=== PATIENT | male | born 1970 | race Caucasian/White ===

== ENCOUNTER 2020-01-29 20:05 | Emergency (ER) | payer MEDICARE, MEDICAID ==
[2020-01-29] MEDS ORDERED: Midazolam 1 MG/ML 2 ML SDV IVPUSH ONE (20:31)
[2020-01-29] MEDS ORDERED: diphenhydrAMINE 50 MG/ML SDV IVPUSH ONE (20:31)
[2020-01-29] MEDS ORDERED: diphenhydrAMINE 50 MG/ML SDV ONE (20:31)
[2020-01-29] MEDS ORDERED: LORazepam 2 MG/ML SDV IVPUSH ONE (20:32)
[2020-01-29] MEDS ORDERED: Haloperidol Lactate 5 MG/ML SDV ONE (20:32)
[2020-01-29] MEDS ORDERED: Haloperidol Lactate 5 MG/ML SDV IVPUSH ONE (20:32)
[2020-01-29] MEDS ORDERED: LORazepam 2 MG/ML SDV ONE (20:32)
[2020-01-29] MEDS ORDERED: Haloperidol Lactate 5 MG/ML SDV IM ONE (20:40)
--- NOTE | 2020-01-29 20:45 | EDM.PDOC ---
ED HPI GENERAL MEDICAL PROBLEM - General Source of Information: Reports: Patient, EMS, EMS Notes Reviewed, Family, Police , RN, RN Notes Reviewed, Other ([facility]) History Limitations: Reports: Altered Mental Status, Combative/Threatening, Uncooperative - History of Present Illness Onset: Today, Sudden <Shannan Carmen - Last Filed: 01/30/20 07:11> <Fouzia Pearson - Last Filed: 01/30/20 09:04> - General Chief Complaint: Behavioral/Psych Stated Complaint: AMBULANCE Time Seen by Provider: 01/29/20 20:10 - History of Present Illness INITIAL COMMENTS - FREE TEXT/NARRATIVE: Pt presents to ER per [facility]. Pt resides at [facility]. EMS states the patient was having seizure like activity when they arrived, patient was laying prone and hitting his forehead on the ground. When seizure like activity stopped, patient became very combative, spitting, biting, kicking, hitting. Patient was escorted to the ER with 2 ambulance personnel and 2 [employer] police officers. Patient had Ativan 2mg IM enroute without any improvement. Patient is alert and screaming at EMS, Police, and ER staff. Patient has a hx of Down's Syndrome (high functioning), dementia, and Alzheimer's. Retirement staff state the patient has no history of seizure. Sister states he has had seizures in the past. Records show the patient has been on Lamotrigine in the past (?09/2019), but is not on this currently. (Shannan Carmen) - Related Data Allergies Allergy/AdvReac Type Severity Reaction Status Date / Time No Known Allergies Allergy Verified 01/29/20 20:31 Home Meds: Home Meds Aspirin [Mohinder Chewable Aspirin] 81 mg PO DAILY 01/29/20 [History] Escitalopram Oxalate [Lexapro] 20 mg PO DAILY 01/29/20 [History] Levothyroxine 112 mcg PO DAILY 01/29/20 [History] Loratadine [Claritin] 10 mg PO DAILY 01/29/20 [History] Memantine HCl/Donepezil HCl [Namzaric 28 mg-10 mg Capsule] 1 tab PO BEDTIME 01/29/20 [History] Montelukast [Singulair] 10 mg PO DAILY 01/29/20 [History] Multivitamin with Minerals [Multiple Vitamin] 1 tab PO DAILY 01/29/20 [History] Mupirocin Calcium [Bactroban] 1 applic TOP DAILY 01/29/20 [History] Pantoprazole Sodium [Protonix] 40 mg PO DAILY 01/29/20 [History] atorvaSTATin [Lipitor] 20 mg PO DAILY 01/29/20 [History] busPIRone [Buspar] 10 mg PO BID 01/29/20 [History] ED ROS GENERAL - Review of Systems Review Of Systems: Comprehensive ROS is negative, except as noted in HPI. <Shannan Carmen - Last Filed: 01/30/20 07:11> - Physical Exam Exam: See Below Exam Limited By: Combative/Threatening General Appearance: Alert, WD/WN, Anxious, Moderate Distress Eye Exam: Bilateral Eye: EOMI, Normal Inspection Ears: Normal External Exam, Hearing Grossly Normal Nose: Normal Inspection Throat/Mouth: Other (mouth, mucous membranes, and lips very dry and cracked) Head Exam: Facial Ecchymosis (petechiae to the forehead), Facial Swelling (center of the forehead, contusion/hematoma) Neck: Normal Inspection, Supple, Full Range of Motion, Tender Lateral Respiratory/Chest: No Respiratory Distress, Lungs Clear, Normal Breath Sounds, No Accessory Muscle Use, Chest Non-Tender Cardiovascular: Normal Peripheral Pulses, Regular Rate, Rhythm, No Edema, No Gallop, No JVD, No Murmur, No Rub GI/Abdominal: Normal Bowel Sounds, Soft, Non-Tender, No Organomegaly, No Distention, No Abnormal Bruit, No Mass, Pelvis Stable (Male) Exam: Deferred Rectal (Males) Exam: Deferred Neuro Exam (Abbreviated): Alert, Other (very combative, kicking, biting, spitting) Back Exam: Normal Inspection, Full Range of Motion Extremities: Normal Inspection, Normal Range of Motion, Non-Tender, No Pedal Edema, Normal Capillary Refill Psychiatric: Anxious, Other (threatening) Skin Exam: Warm, Dry, Intact, Normal Color, No Rash <Shannan Carmen - Last Filed: 01/30/20 07:11> Course <Shannan Carmen - Last Filed: 01/30/20 07:11> - Vital Signs Last Recorded V/S: Last Vital Signs Temp 99.6 F 01/29/20 20:51 Pulse 87 01/29/20 20:51 Resp 16 01/29/20 20:51 BP 134/60 01/29/20 20:51 Pulse Ox 91 L 01/29/20 20:51 - Orders/Labs/Meds Orders: Active Orders 24 hr Category Date Time Status Blood Glucose Check, Bedside [RC] ONETIME Care 01/29/20 20:24 Active EKG Documentation Completion [RC] STAT Care 01/29/20 20:24 Active HBSAG SCREEN [REF] Routine Lab 01/29/20 21:00 Received HEP C VIRUS AB [REF] Routine Lab 01/29/20 21:00 Received Labs: Laboratory Tests 01/29/20 01/29/20 01/29/20 Range/Units 20:52 21:00 21:00 WBC 5.4 (5.0-10.0) 10^3/uL RBC 3.72 L (4.6-6.2) 10^6/uL Hgb 12.6 L (14.0-18.0) g/dL Hct 36.8 L (40.0-54.0) % MCV 98.9 (80-100) fL MCH 33.9 (27.0-34.0) pg MCHC 34.2 (33.0-35.0) g/dL Plt Count 123 L (150-450) 10^3/uL Neut % (Auto) 90.9 H (42.2-75.2) % Lymph % (Auto) 5.2 L (20.5-50.1) % [place] % (Auto) 3.3 (2-8) % Eos % (Auto) 0.4 L (1.0-3.0) % Baso % (Auto) 0.2 (0.0-1.0) % Sodium 142 (136-145) mmol/L Potassium 3.5 (3.5-5.1) mmol/L Chloride 103 (98-107) mmol/L Carbon Dioxide 25 (21-32) mmol/L Anion Gap 17.5 H (7-13) mEq/L BUN 24 H (7-18) mg/dL Creatinine 1.31 H (0.70-1.30) mg/dL Est Cr Clr Drug Dosing 62.23 mL/min Estimated GFR (MDRD) 58 BUN/Creatinine Ratio 18.3 (No establ ref range) Glucose 101 H (74-99) mg/dL POC Glucose 97 (70-105) mg/dl Calcium 8.2 L (8.5-10.1) mg/dL Total Bilirubin 0.6 (0.2-1.0) mg/dL AST 28 (15-37) U/L ALT 23 (16-63) U/L Alkaline Phosphatase 67 (46-116) U/L Total Protein 6.9 (6.4-8.2) g/dL Albumin 3.1 L (3.4-5.0) g/dL Globulin 3.8 Albumin/Globulin Ratio 0.82 Urine Color (YELLOW) Urine Appearance (CLEAR) Urine pH (5.0-9.0) Ur Specific [place] (1.005-1.030) Urine Protein (NEGATIVE) Urine Glucose (UA) (NEGATIVE) Urine Ketones (NEGATIVE) Urine Occult Blood (NEGATIVE) Urine Nitrite (NEGATIVE) Urine Bilirubin (NEGATIVE) Urine Urobilinogen (0.2-1.0) mg/dL Ur Leukocyte Esterase (NEGATIVE) Urine RBC /HPF Urine WBC (0-5/HPF) /HPF Ur Epithelial Cells (NOT SEEN) /HPF Urine Bacteria (0-FEW/HPF) /HPF HIV-1 Antibody (NONREACTIVE) HIV-2 Antibody (NONREACTIVE) HIV P24 Antigen (NONREACTIVE) SARS CoV-2 RNA Rapid VASILIY (NEGATIVE) 01/29/20 01/29/20 01/30/20 Range/Units 21:00 21:00 01:55 WBC (5.0-10.0) 10^3/uL RBC (4.6-6.2) 10^6/uL Hgb (14.0-18.0) g/dL Hct (40.0-54.0) % MCV (80-100) fL MCH (27.0-34.0) pg MCHC (33.0-35.0) g/dL Plt Count (150-450) 10^3/uL Neut % (Auto) (42.2-75.2) % Lymph % (Auto) (20.5-50.1) % [place] % (Auto) (2-8) % Eos % (Auto) (1.0-3.0) % Baso % (Auto) (0.0-1.0) % Sodium (136-145) mmol/L Potassium (3.5-5.1) mmol/L Chloride (98-107) mmol/L Carbon Dioxide (21-32) mmol/L Anion Gap (7-13) mEq/L BUN (7-18) mg/dL Creatinine (0.70-1.30) mg/dL Est Cr Clr Drug Dosing mL/min Estimated GFR (MDRD) BUN/Creatinine Ratio (No establ ref range) Glucose (74-99) mg/dL POC Glucose (70-105) mg/dl Calcium (8.5-10.1) mg/dL Total Bilirubin (0.2-1.0) mg/dL AST (15-37) U/L ALT (16-63) U/L Alkaline Phosphatase (46-116) U/L Total Protein (6.4-8.2) g/dL Albumin (3.4-5.0) g/dL Globulin Albumin/Globulin Ratio Urine Color Yellow (YELLOW) Urine Appearance Clear (CLEAR) Urine pH 7.5 (5.0-9.0) Ur Specific [place] 1.020 (1.005-1.030) Urine Protein Negative (NEGATIVE) Urine Glucose (UA) Negative (NEGATIVE) Urine Ketones Negative (NEGATIVE) Urine Occult Blood Negative (NEGATIVE) Urine Nitrite Negative (NEGATIVE) Urine Bilirubin Negative (NEGATIVE) Urine Urobilinogen 0.2 (0.2-1.0) mg/dL Ur Leukocyte Esterase Negative (NEGATIVE) Urine RBC Not seen /HPF Urine WBC 0-5 (0-5/HPF) /HPF Ur Epithelial Cells Occasional (NOT SEEN) /HPF Urine Bacteria Few (0-FEW/HPF) /HPF HIV-1 Antibody Non-reactive (NONREACTIVE) HIV-2 Antibody Non-reactive (NONREACTIVE) HIV P24 Antigen Non-reactive (NONREACTIVE) SARS CoV-2 RNA Rapid VASILIY Negative (NEGATIVE) Meds: Medications Discontinued Medications Generic Name Dose Route Start Last Admin Trade Name Freq PRN Reason Stop Dose Admin Diphenhydramine HCl 50 mg 01/29/20 20:31 01/29/20 20:36 Benadryl IVPUSH 01/29/20 20:32 50 mg ONETIME ONE Administration Diphenhydramine HCl Confirm 01/29/20 20:31 Benadryl Administered 01/29/20 20:32 Dose 50 mg .ROUTE .STK-MED ONE Haloperidol Lactate 5 mg 01/29/20 20:32 Haldol IVPUSH 01/29/20 20:33 ONETIME ONE Haloperidol Lactate Confirm 01/29/20 20:32 Haldol Administered 01/29/20 20:33 Dose 5 mg .ROUTE .STK-MED ONE Haloperidol Lactate 5 mg 01/29/20 20:40 01/29/20 20:42 Haldol IM 01/29/20 20:41 5 mg ONETIME ONE Administration Sodium Chloride 1,000 mls @ 999 mls/hr 01/29/20 21:04 01/29/20 21:11 Normal Saline IV 01/29/20 22:04 999 mls/hr .BOLUS ONE Administration Levetiracetam 1,500 mg/ Premix 300 mls @ 1,200 mls/hr 01/29/20 22:05 01/29/20 22:32 IV 01/29/20 22:06 1,200 mls/hr ONETIME ONE Administration Lorazepam 2 mg 01/29/20 20:32 Ativan IVPUSH 01/29/20 20:33 ONETIME ONE Lorazepam Confirm 01/29/20 20:32 Ativan Administered 01/29/20 20:33 Dose 2 mg .ROUTE .STK-MED ONE Midazolam HCl 2 mg 01/29/20 20:31 01/29/20 20:11 Versed 1 Mg/Ml IVPUSH 01/29/20 20:32 2 mg ONETIME ONE Administration - Radiology Interpretation Free Text/Narrative:: Head CT wo contrast: PROCEDURE INFORMATION: Exam: CT Head Without Contrast Exam date and time: 01/29/2020 9:40 PM Age: 49 years old Clinical indication: Other: Mentally disabled, unable to cooperate; Additional info: Petechia on forehead, seizure like activity, TECHNIQUE: Imaging protocol: Computed tomography of the head without contrast. Radiation optimization: All CT scans at this facility use at least one of these dose optimization techniques: automated exposure control; mA and/or kV adjustment per patient size (includes targeted exams where dose is matched to clinical indication); or iterative reconstruction. COMPARISON: No relevant prior studies available. FINDINGS: Brain: Normal. No hemorrhage. Unremarkable white matter. No mass effect. Cerebral ventricles: No ventriculomegaly. Bones/joints: Unremarkable. No acute fracture. Paranasal sinuses: Visualized sinuses are unremarkable. No fluid levels. Mastoid air cells: Visualized mastoid air cells are well aerated. Soft tissues: Unremarkable. IMPRESSION: No acute intracranial abnormality. Thank you for allowing us to participate in the care of your patient. Dictated and Authenticated by: Klaus Harris MD 01/29/2020 10:00 PM Central Time ([place] & [place]) See rad report (Shannan Carmen) - Re-Assessments/Exams Free Text/Narrative Re-Assessment/Exam: 01/29/2020 Patient case discussed with Laila George NP at the [facility] in [place]. She is concerned with further seizures. She requests the patient be observed for 8 hours and reassessed for transfer. Marissa from the [facility] [place] was here to assess the patient and assist with transfer paperwork. 01/29/20 21:44 Brother/Guardian was called for consent to draw HIV/HepC for exposure protocol. He agreed allow lab to be drawn for this reason as heard on phone conversation with himself and Cora Siegel RN, Making Department Preparer. (Shannan Carmen) Departure <Shannan Carmen - Last Filed: 01/30/20 07:11> - Departure Time of Disposition: 09:02 Condition: Good - Discharge Information *PRESCRIPTION DRUG MONITORING PROGRAM REVIEWED*: Not Applicable *COPY OF PRESCRIPTION DRUG MONITORING REPORT IN PATIENT TAMMY: Not Applicable <Fouzia Pearson Alyssa - Last Filed: 01/30/20 09:04> - Departure Disposition: DC/Tfer to Acute Hospital 02 Clinical Impression: Threatening to self, Suicidal ideation, Seizure-like activity - Discharge Information Referrals: PCP,None [Primary Care Provider] - Forms: ED Department Discharge, Interfacility Transfer TOSHA
[2020-01-29] MEDS ORDERED: Sodium Chloride 0.9% 1,000 ML IV ONE (21:04)
[2020-01-29 21:25] LABS: ANION GAP 17.5 mEq/L (7-13)
--- NOTE | 2020-01-29 22:01 | CT ---
PROCEDURE INFORMATION: Exam: CT Head Without Contrast Exam date and time: 01/29/2020 9:40 PM Age: 49 years old Clinical indication: Other: Mentally disabled, unable to cooperate; Additional info: Petechia on forehead, seizure like activity, TECHNIQUE: Imaging protocol: Computed tomography of the head without contrast. Radiation optimization: All CT scans at this facility use at least one of these dose optimization techniques: automated exposure control; mA and/or kV adjustment per patient size (includes targeted exams where dose is matched to clinical indication); or iterative reconstruction. COMPARISON: No relevant prior studies available. FINDINGS: Brain: Normal. No hemorrhage. Unremarkable white matter. No mass effect. Cerebral ventricles: No ventriculomegaly. Bones/joints: Unremarkable. No acute fracture. Paranasal sinuses: Visualized sinuses are unremarkable. No fluid levels. Mastoid air cells: Visualized mastoid air cells are well aerated. Soft tissues: Unremarkable. IMPRESSION: No acute intracranial abnormality.
[2020-01-29] MEDS ORDERED: levETIRAcetam in NaCl (iso-os) 1,500 MG in Premix Bag 1 BAG IV ONE ×2 (22:05)
== END 2020-01-30 08:57 ==
LOC: DL.ED 20:05 → DL.LAB 20:05
DX: R45.851 Suicidal ideations (principal); R56.9 Unspecified convulsions; Z20.828 Contact with and (suspected) exposure to other viral communicable diseases; Z79.82 Long term (current) use of aspirin; Z79.899 Other long term (current) drug therapy
CPT/HCPCS: 36415; 70450; 80053; 81001; 82962; 85025; 93005; 93010; 96361; 96365; 96372; 96375; 99284; 99285; J1200; J1630; J1953; J2250; J7030; U0002; 86803; 87340; 87389

== ENCOUNTER 2020-08-11 23:11 | Emergency (ER) | payer MEDICARE, MEDICAID ==
[2020-08-12] MEDS ORDERED: LORazepam 2 MG/ML SDV IM ONE (00:26)
[2020-08-12] MEDS ORDERED: diphenhydrAMINE 50 MG/ML SDV IM ONE (00:26)
[2020-08-12] MEDS ORDERED: Haloperidol Lactate 5 MG/ML SDV IM ONE (00:27)
[2020-08-12] MEDS ORDERED: Sodium Chloride 0.9% 1,000 ML IV ONE (00:38)
[2020-08-12 00:42] LABS: ANION GAP 24.3 mEq/L (7-13); CHLORIDE,CL 104 mmol/L (98-107); SODIUM,NA 144 mmol/L (136-145)
[2020-08-12] MEDS ORDERED: Acetaminophen 325 MG Tab PO ONE (02:55)
--- NOTE | 2020-08-12 03:13 | EDM.PDOCBH ---
ED HPI GENERAL MEDICAL PROBLEM - General Chief Complaint: Behavioral/Psych Stated Complaint: AMBULANCE Time Seen by Provider: 08/11/20 23:11 Source of Information: Reports: Patient, EMS, EMS Notes Reviewed, Family, RN, RN Notes Reviewed History Limitations: Reports: Altered Mental Status, Combative/Threatening, Uncooperative - History of Present Illness INITIAL COMMENTS - FREE TEXT/NARRATIVE: Patient is a 49-year-old male who presents to ER per [place] ambulance service with complaint of seizure-like activity. Patient's [id number] states [place] the [place] when the patient became very anxious, rigid and began having muscle spasms. He states his body appeared as though he was having a seizure but the patient was always alert and talking to him. [place]ulance [place]. Patient was brought into ER as he became very very agitated after the episode. No blood sugar taken or vitals as to EMS personnel were busy trying to keep the patient on the cot while coming into the ER. Upon arrival to the ER patient was calm and cooperative, moved over to the ER gurney on his own. Soon after arrival patient became rigid and spastic motions, yet was alert and conversing with staff. To staff were trying to keep the patient on the bed as he was going to fall off the bed. Patient became very agitated and became combative. EMS still present assisted, as well as law enforcement. Patient was given Benadryl 50, Ativan 2, Haldol 5 IM. Soft restraints were used as well. Patient was yelling and swearing, spitting, attempting to bite. Patient did initially say that he "hurt all over". Patient does have history of Down syndrome and dementia. Onset: Today, Sudden - Related Data Allergies Allergy/AdvReac Type Severity Reaction Status Date / Time No Known Allergies Allergy Verified 08/12/20 00:11 Home Meds: Home Meds Aspirin [Mohinder Chewable Aspirin] 81 mg PO DAILY 01/29/20 [History] Escitalopram Oxalate [Lexapro] 20 mg PO DAILY 01/29/20 [History] Levothyroxine 112 mcg PO DAILY 01/29/20 [History] Loratadine [Claritin] 10 mg PO DAILY 01/29/20 [History] Memantine HCl/Donepezil HCl [Namzaric 28 mg-10 mg Capsule] 1 tab PO BEDTIME 01/29/20 [History] Montelukast [Singulair] 10 mg PO DAILY 01/29/20 [History] Multivitamin with Minerals [Multiple Vitamin] 1 tab PO DAILY 01/29/20 [History] Mupirocin Calcium [Bactroban] 1 applic TOP DAILY 01/29/20 [History] Pantoprazole Sodium [Protonix] 40 mg PO DAILY 01/29/20 [History] atorvaSTATin [Lipitor] 20 mg PO DAILY 01/29/20 [History] busPIRone [Buspar] 10 mg PO BID 01/29/20 [History] Past Medical History HEENT History: Reports: Allergic Rhinitis Cardiovascular History: Reports: High Cholesterol Gastrointestinal History: Reports: GERD Neurological History: Reports: Alzheimers Disease, Other (See Below) Other Neuro History: down's syndrome Psychiatric History: Reports: Alzheimers Disease, Developmental Delay, Emotional Problems, Suicide Attempt Endocrine/Metabolic History: Reports: Diabetes, Type II, Hypothyroidism Dermatologic History: Reports: Urticaria Social & Family History - Family History Family Medical History: No Pertinent Family History - Tobacco Use Tobacco Use Status *Q: Current Status Unknown Second Hand Smoke Exposure: No - Caffeine Use Caffeine Use: Reports: None - Recreational Drug Use Recreational Drug Use: No ED ROS GENERAL - Review of Systems Review Of Systems: Comprehensive ROS is negative, except as noted in HPI. ED EXAM, BEHAVIORAL HEALTH - Physical Exam Exam: See Below Exam Limited By: Combative/Threatening Eye Exam: Bilateral Eye: EOMI, Normal Inspection Ears: Normal External Exam, Hearing Grossly Normal Nose: Normal Inspection Throat/Mouth: Normal Inspection, Normal Voice, No Airway Compromise Head: Atraumatic, Normocephalic Neck: Normal Inspection, Supple, Non-Tender, Full Range of Motion Respiratory/Chest: No Respiratory Distress, Lungs Clear, Normal Breath Sounds, No Accessory Muscle Use, Chest Non-Tender Cardiovascular: Normal Peripheral Pulses, Regular Rate, Rhythm, No Edema, No Gallop, No JVD, No Rub, Systolic Murmur GI/Abdominal: Normal Bowel Sounds, Soft, Non-Tender, No Organomegaly, No Distention, No Abnormal Bruit, No Mass (Male) Exam: Deferred Rectal (Males) Exam: Deferred Back Exam: Normal Inspection, Full Range of Motion, NT Extremities: Normal Inspection, Normal Range of Motion, Non-Tender, Normal Capillary Refill, No Pedal Edema Neurological: Alert, No Motor/Sensory Deficits, Oriented x 3 Psychiatric: Restless, Agitated, Grandiose Thoughts, Threatening Behavior Skin Exam: Warm, Dry, Intact, Normal color, No rash COURSE, BEHAVIORAL HEALTH COMP - Course Vital Signs: Last Vital Signs Temp 99.2 F 08/11/20 23:30 Pulse 70 08/11/20 23:30 Resp 18 08/11/20 23:30 BP 106/58 L 08/11/20 23:30 Pulse Ox 98 08/11/20 23:30 Orders, Labs, Meds: Laboratory Tests 08/11/20 08/11/20 08/12/20 Range/Units 23:55 23:55 02:54 WBC 6.9 (5.0-10.0) 10^3/uL RBC 3.97 L (4.6-6.2) 10^6/uL Hgb 13.3 L (14.0-18.0) g/dL Hct 40.1 (40.0-54.0) % MCV 101.0 H (80-100) fL MCH 33.5 (27.0-34.0) pg MCHC 33.2 (33.0-35.0) g/dL Plt Count 143 L (150-450) 10^3/uL Neut % (Auto) 46.4 (42.2-75.2) % Lymph % (Auto) 44.6 (20.5-50.1) % [place] % (Auto) 8.3 H (2-8) % Eos % (Auto) 0.4 L (1.0-3.0) % Baso % (Auto) 0.3 (0.0-1.0) % Sodium 144 (136-145) mmol/L Potassium 3.3 L (3.5-5.1) mmol/L Chloride 104 (98-107) mmol/L Carbon Dioxide 19 L (21-32) mmol/L Anion Gap 24.3 H (7-13) mEq/L BUN 30 H (7-18) mg/dL Creatinine 1.69 H (0.70-1.30) mg/dL Est Cr Clr Drug Dosing 49.98 mL/min Estimated GFR (MDRD) 44 BUN/Creatinine Ratio 17.8 (No establ ref range) Glucose 87 (70-99) mg/dL Calcium 8.2 L (8.5-10.1) mg/dL Magnesium 2.1 (1.8-2.4) mg/dL Total Bilirubin 0.5 (0.2-1.0) mg/dL AST 36 (15-37) U/L ALT 50 (16-63) U/L Alkaline Phosphatase 81 (46-116) U/L Troponin I < 0.017 (0.000-0.056) ng/mL C-Reactive Protein < 0.2 (0.0-0.9) mg/dL Total Protein 7.2 (6.4-8.2) g/dL Albumin 3.4 (3.4-5.0) g/dL Globulin 3.8 Albumin/Globulin Ratio 0.9 Amylase 41 (25-115) U/L Lipase 78 (73-393) U/L Urine Color Yellow (YELLOW) Urine Appearance Clear (CLEAR) Urine pH 5.5 (5.0-9.0) Ur Specific [place] 1.020 (1.005-1.030) Urine Protein Negative (NEGATIVE) Urine Glucose (UA) Negative (NEGATIVE) Urine Ketones Negative (NEGATIVE) Urine Occult Blood Negative (NEGATIVE) Urine Nitrite Negative (NEGATIVE) Urine Bilirubin Negative (NEGATIVE) Urine Urobilinogen 0.2 (0.2-1.0) mg/dL Ur Leukocyte Esterase Negative (NEGATIVE) Medications Discontinued Medications Generic Name Dose Route Start Last Admin Trade Name Freq PRN Reason Stop Dose Admin Acetaminophen 650 mg 08/12/20 02:55 08/12/20 02:59 Acetaminophen 325 Mg Tab PO 08/12/20 02:56 650 mg NOW ONE Administration Diphenhydramine HCl 50 mg 08/12/20 00:26 08/12/20 00:37 Diphenhydramine 50 Mg/Ml Sdv IM 08/12/20 00:27 50 mg ONETIME ONE Administration Haloperidol Lactate 5 mg 08/12/20 00:27 08/12/20 00:38 Haloperidol Lactate 5 Mg/Ml Sdv IM 08/12/20 00:28 5 mg ONETIME ONE Administration Sodium Chloride 1,000 mls @ 999 mls/hr 08/12/20 00:38 08/12/20 00:41 Normal Saline IV 08/12/20 01:38 999 mls/hr .BOLUS ONE Administration Lorazepam 2 mg 08/12/20 00:26 08/12/20 00:38 Lorazepam 2 Mg/Ml Sdv IM 08/12/20 00:27 2 mg ONETIME ONE Administration Discharge vs Psych Eval/Treatment:: 08/12/20 06:42 Patient sister present in the ER. Medications given to calm the patient down did work, patient is calm and resting at this time. Restraints were removed. When patient awoke he was very pleasant and cooperative. Did request Tylenol for "hurting all over". Departure - Departure Time of Disposition: 03:12 Disposition: Home, Self-Care 01 Condition: Good Clinical Impression: Seizure-like activity - Discharge Information *PRESCRIPTION DRUG MONITORING PROGRAM REVIEWED*: No *COPY OF PRESCRIPTION DRUG MONITORING REPORT IN PATIENT TAMMY: No Forms: ED Department Discharge Additional Instructions: Return to the ER with any worsening of problems Follow-up with your primary care provider next week May use Tylenol as directed for pain Sepsis Event Note (ED) - Evaluation Sepsis Screening Result: No Definite Risk - Focused Exam Vital Signs: Vital Signs Temp Pulse Resp BP Pulse Ox 08/11/20 23:30 99.2 F 70 18 106/58 L 98
== END 2020-08-12 03:20 | disposition home or self-care (01) ==
LOC: DL.ED 23:11
DX: R25.9 Unspecified abnormal involuntary movements (principal); E78.00 Pure hypercholesterolemia, unspecified; K21.9 Gastro-esophageal reflux disease without esophagitis; G30.9 Alzheimer's disease, unspecified; F02.80 Dementia in other diseases classified elsewhere, unspecified severity, without behavioral disturbance, psychotic disturbance, mood disturbance, and anxiety; E11.9 Type 2 diabetes mellitus without complications; E03.9 Hypothyroidism, unspecified; Q90.9 Down syndrome, unspecified; Z79.899 Other long term (current) drug therapy
CPT/HCPCS: 36415; 80053; 81003; 82150; 83690; 83735; 84484; 85025; 86140; 96372; 99284; A9270-GY; J1200; J1630; J2060; J7030

== ENCOUNTER 2024-08-11 11:25 | Inpatient (IN) | payer MEDICARE, MEDICAID ==
[2024-08-11] MEDS ORDERED: Sodium Chloride 0.9% 10 ML Syringe FLUSH PRN (11:39)
[2024-08-11 11:59] LABS: BASOPHILS PERCENT AUTO 0.1 % (0.0-1.0); EOSINOPHILS PERCENT AUTO 0.1 % (1.0-3.0); HEMOGLOBIN 11.3 g/dL (14.0-18.0); LYMPHOCYTES PERCENT AUTO 7.3 % (20.5-50.1); MEAN CORPUSCULAR HEMOGLOBIN 33.6 pg (27.0-34.0); MEAN CORPUSCULAR HGB CONC 33.2 g/dL (33.0-35.0); MEAN CORPUSCULAR VOLUME 101.2 fL (80-100); MONOCYTES PERCENT AUTO 5.8 % (2-8); NEUTROPHILS PERCENT AUTO 86.7 % (42.2-75.2); PLATELET COUNT,PLT 127 10^3/uL (150-450); RED BLOOD CELL COUNT 3.36 10^6/uL (4.6-6.2); WHITE BLOOD CELL COUNT,WBC 10.4 10^3/uL (5.0-10.0)
[2024-08-11 12:21] LABS: LACTIC ACID 1.1 mmol/L (0.4-2.0)
[2024-08-11 12:28] LABS: ALBUMIN 2.5 g/dL (3.4-5.0); ANION GAP 10.4 mEq/L (7-13); BILIRUBIN TOTAL 0.6 mg/dL (0.2-1.0); BUN/CREATININE RATIO 14.9 (No establ ref range); C-REACTIVE PROTEIN 12.56 ng/dL (<=0.50); CALCIUM 8.1 mg/dL (8.5-10.1); CREATININE 1.14 mg/dL (0.70-1.30); EST CRCL DRUG DOSING (CG) 53.61 mL/min; MAGNESIUM 1.9 mg/dL (1.8-2.4); POTASSIUM,K 3.4 mmol/L (3.5-5.1); PROTEIN TOTAL,TP 6.5 g/dL (6.4-8.2)
[2024-08-11 12:32] LABS: A/G RATIO 0.63
[2024-08-11] MEDS: cefTRIAXone 2 GM Vial IVPUSH ONE (12:55)
[2024-08-11] MEDS: Piperacillin/Tazobactam 4.5 GM in Sodium Chloride 0.9% 100 ML IV ONE (12:55)
[2024-08-11] MEDS: Potassium Chloride 20 MEQ in Premix Bag 1 BAG IV ONE (12:56)
[2024-08-11] MEDS ORDERED: Ondansetron 4 MG/2 ML SDV IVPUSH PRN (14:22)
[2024-08-11] MEDS ORDERED: Glucagon,Human Recombinant 1 MG Vial IM PRN (14:24)
[2024-08-11] MEDS ORDERED: 50% Dextrose in Water 50 ML Syringe IVPUSH PRN (14:24)
[2024-08-11 14:25] LABS: CORONAVIRUS COVID-19 NAA NEGATIVE (NEGATIVE); INFLUENZA A NAA NEGATIVE (NEGATIVE); INFLUENZA B NAA NEGATIVE (NEGATIVE); RESPIRATORY SYNCYTIAL VIR NAA NEGATIVE (NEGATIVE)
[2024-08-11 15:28] LABS: T4 FREE 1.26 ng/dL (0.76-1.46); TSH ULTRASENSITIVE 1.49 uIU/mL (0.36-3.74)
[2024-08-11 15:31] LABS: FOLIC ACID > 20.0 ng/mL (8.6-58.9)
[2024-08-11] MEDS: Enoxaparin 40 MG/0.4 ML Syringe SUBCUT SCH (18:28)
[2024-08-11] MEDS: Piperacillin/Tazobactam 4.5 GM in Sodium Chloride 0.9% 100 ML IV SCH (18:28)
[2024-08-11] MEDS: Insulin Lispro 100 Units/ML 3 ML Vial SUBCUT SCH (18:28)
[2024-08-11] MEDS: Sucralfate 1 GM Tab PO SCH (18:28)
[2024-08-11] MEDS: Donepezil 10 MG Tab PO SCH (20:16)
[2024-08-11] MEDS: atorvaSTATin 20 MG Tab PO SCH (20:17)
[2024-08-11] MEDS: LORazepam 0.5 MG Tab PO SCH (20:17)
[2024-08-11] MEDS: QUEtiapine 100 MG Tab PO SCH (20:18)
[2024-08-11] MEDS: Pantoprazole 40 MG Tab.CR PO SCH (20:18)
[2024-08-11] MEDS: Memantine 10 MG Tab PO SCH (20:18)
[2024-08-11] MEDS: Doxepin 25 MG Cap PO SCH (20:19)
[2024-08-11] MEDS: Montelukast 10 MG Tab PO SCH (20:21)
[2024-08-11] MEDS ORDERED: Non-Formulary Medication 1 Each (Memantine Hcl/Donepezil Hcl [Namzaric 28 Mg-10 Mg Capsule PO SCH (21:00)
[2024-08-12] MEDS: Acetaminophen 325 MG Tab PO PRN (00:13)
[2024-08-12] MEDS: Levothyroxine 112 MCG Tab PO SCH (06:23)
[2024-08-12 06:33] LABS: BASOPHILS PERCENT AUTO 0.1 % (0.0-1.0); EOSINOPHILS PERCENT AUTO 0.1 % (1.0-3.0); HEMATOCRIT 33.8 % (40.0-54.0); HEMOGLOBIN 11.3 g/dL (14.0-18.0); LYMPHOCYTES PERCENT AUTO 11.5 % (20.5-50.1); MEAN CORPUSCULAR HEMOGLOBIN 33.5 pg (27.0-34.0); MEAN CORPUSCULAR HGB CONC 33.4 g/dL (33.0-35.0); MEAN CORPUSCULAR VOLUME 100.3 fL (80-100); MONOCYTES PERCENT AUTO 6.4 % (2-8); NEUTROPHILS PERCENT AUTO 81.9 % (42.2-75.2); PLATELET COUNT,PLT 135 10^3/uL (150-450); RED BLOOD CELL COUNT 3.37 10^6/uL (4.6-6.2); WHITE BLOOD CELL COUNT,WBC 7.7 10^3/uL (5.0-10.0)
[2024-08-12 06:48] LABS: CALCIUM 8.3 mg/dL (8.5-10.1); CREATININE 1.13 mg/dL (0.70-1.30); EST CRCL DRUG DOSING (CG) 71.49 mL/min; MAGNESIUM 1.8 mg/dL (1.8-2.4); PHOSPHORUS 1.8 mg/dL (2.6-4.7)
[2024-08-12] MEDS: Loratadine 10 MG Tab PO SCH (08:52)
[2024-08-12] MEDS: FLUoxetine 10 MG Cap PO SCH (08:53)
[2024-08-12] MEDS: Sodium Chloride 0.9% 1,000 ML IV SCH ×2 (08:54→23:39)
[2024-08-12] MEDS: Potassium Chloride 20 MEQ in Premix Bag 1 BAG IV ONE (12:26)
[2024-08-12] MEDS: Phosphorus #1 250 MG Tab PO SCH (12:29)
[2024-08-12 21:08] LABS: BASOPHILS PERCENT AUTO 0.1 % (0.0-1.0); EOSINOPHILS PERCENT AUTO 0.1 % (1.0-3.0); HEMATOCRIT 35.7 % (40.0-54.0); HEMOGLOBIN 11.5 g/dL (14.0-18.0); LYMPHOCYTES PERCENT AUTO 8.7 % (20.5-50.1); MEAN CORPUSCULAR HEMOGLOBIN 32.3 pg (27.0-34.0); MEAN CORPUSCULAR HGB CONC 32.2 g/dL (33.0-35.0); MEAN CORPUSCULAR VOLUME 100.3 fL (80-100); MONOCYTES PERCENT AUTO 6.3 % (2-8); NEUTROPHILS PERCENT AUTO 84.8 % (42.2-75.2); PLATELET COUNT,PLT 146 10^3/uL (150-450); RED BLOOD CELL COUNT 3.56 10^6/uL (4.6-6.2); WHITE BLOOD CELL COUNT,WBC 7.9 10^3/uL (5.0-10.0)
[2024-08-12 21:38] LABS: APPEARANCE,URINE CLEAR (CLEAR); COLOR,URINE YELLOW (YELLOW)
[2024-08-12 21:39] LABS: BILIRUBIN,URINE NEGATIVE (NEGATIVE); GLUCOSE,URINE NEGATIVE (NEGATIVE); KETONES,URINE NEGATIVE (NEGATIVE); LEUKOCYTE ESTERASE,URINE NEGATIVE (NEGATIVE); NITRITE,URINE NEGATIVE (NEGATIVE); OCCULT BLOOD,URINE MODERATE (NEGATIVE); PH,URINE 6.5 (5.0-9.0); PROTEIN,URINE NEGATIVE (NEGATIVE); UROBILINOGEN,URINE >=8.0 mg/dL (0.2-1.0)
[2024-08-12 21:58] LABS: BACTERIA,URINE FEW /HPF (0-FEW/HPF); EPITHELIAL CELLS,URINE FEW /HPF (NOT SEEN); MUCUS,URINE FEW /LPF (NOT SEEN); WBC,URINE 0-5 /HPF (0-5/HPF)
[2024-08-12 22:08] LABS: LACTIC ACID 2.2 mmol/L (0.4-2.0)
[2024-08-12] MEDS: Sodium Chloride 0.9% 1,000 ML IV ONE (22:15)
[2024-08-12] MEDS: LORazepam 2 MG/ML SDV IVPUSH ONE (22:55)
[2024-08-12] MEDS: Ampicillin 2 GM Vial IVPUSH ONE ×2 (23:00→23:48)
[2024-08-12] MEDS: cefTRIAXone 2 GM Vial IVPUSH SCH (23:48)
[2024-08-12] MEDS: Dexamethasone 4 MG/ML SDV IVPUSH SCH (23:49)
[2024-08-13] MEDS: VANCOmycin 1.5 GM/300 ML 1.5 GM in Premix Bag 1 BAG IV ONE ×2 (00:13→08:55)
[2024-08-13] MEDS: VANCOmycin 1.25 GM in Sodium Chloride 0.9% 250 ML IV SCH (01:08)
[2024-08-13] MEDS: Ampicillin 2 GM Vial IVPUSH SCH (02:12)
[2024-08-13] MEDS: Sodium Chloride 0.9% 1,000 ML IV SCH (02:12)
[2024-08-13 02:14] LABS: APPEARANCE CSF CLEAR; COLOR,CSF COLORLESS; RBC,CSF 2.75; SUPERNATANT APPEAR,CSF NO XANTHOCHROMIA; TUBE NUMBER,CSF 1; TUBE VOLUME,CSF 2; WBC,CSF 0
[2024-08-13 03:01] LABS: LACTIC ACID 0.7 mmol/L (0.4-2.0)
[2024-08-13 06:16] LABS: HEMATOCRIT 33.2 % (40.0-54.0); LYMPHOCYTES PERCENT AUTO 4.9 % (20.5-50.1); MEAN CORPUSCULAR HEMOGLOBIN 33.2 pg (27.0-34.0); MEAN CORPUSCULAR HGB CONC 33.1 g/dL (33.0-35.0); MEAN CORPUSCULAR VOLUME 100.3 fL (80-100); MONOCYTES PERCENT AUTO 2.1 % (2-8); PLATELET COUNT,PLT 133 10^3/uL (150-450); RED BLOOD CELL COUNT 3.31 10^6/uL (4.6-6.2); WHITE BLOOD CELL COUNT,WBC 6.7 10^3/uL (5.0-10.0)
[2024-08-13 06:34] LABS: ANION GAP 9.6 mEq/L (7-13); CALCIUM 7.6 mg/dL (8.5-10.1); CREATININE 1.1 mg/dL (0.70-1.30); EST CRCL DRUG DOSING (CG) 73.44 mL/min; MAGNESIUM 1.8 mg/dL (1.8-2.4); PHOSPHORUS 2.4 mg/dL (2.6-4.7); POTASSIUM,K 3.6 mmol/L (3.5-5.1)
[2024-08-13] MEDS: VANCOmycin 1 GM in Sodium Chloride 0.9% 250 ML IV SCH (20:11)
[2024-08-14 06:24] LABS: BASOPHILS PERCENT AUTO 0.1 % (0.0-1.0); HEMATOCRIT 36.6 % (40.0-54.0); HEMOGLOBIN 11.7 g/dL (14.0-18.0); LYMPHOCYTES PERCENT AUTO 3.5 % (20.5-50.1); MEAN CORPUSCULAR HEMOGLOBIN 31.7 pg (27.0-34.0); MEAN CORPUSCULAR VOLUME 99.2 fL (80-100); MONOCYTES PERCENT AUTO 1.2 % (2-8); NEUTROPHILS PERCENT AUTO 95.2 % (42.2-75.2); PLATELET COUNT,PLT 174 10^3/uL (150-450); RED BLOOD CELL COUNT 3.69 10^6/uL (4.6-6.2)
[2024-08-14 06:58] LABS: C-REACTIVE PROTEIN 12.48 ng/dL (<=0.50); VANCOMYCIN RANDOM 15.2 ug/mL (No Normal Range)
[2024-08-14 07:01] LABS: ALBUMIN 2.1 g/dL (3.4-5.0); ANION GAP 11.5 mEq/L (7-13); BILIRUBIN TOTAL 0.4 mg/dL (0.2-1.0); BUN/CREATININE RATIO 12.3 (No establ ref range); CALCIUM 8.1 mg/dL (8.5-10.1); CREATININE 1.14 mg/dL (0.70-1.30); EST CRCL DRUG DOSING (CG) 70.87 mL/min; PHOSPHORUS 2.2 mg/dL (2.6-4.7); POTASSIUM,K 3.5 mmol/L (3.5-5.1); PROTEIN TOTAL,TP 6.8 g/dL (6.4-8.2)
[2024-08-14 07:04] LABS: A/G RATIO 0.45
[2024-08-14] MEDS: Ampicillin/Sulbactam Na 3 GM in Sodium Chloride 0.9% 100 ML IV SCH (14:39)
[2024-08-14] MEDS: cefTRIAXone 2 GM Vial IVPUSH SCH (14:39)
[2024-08-15 06:30] LABS: HEMATOCRIT 35.8 % (40.0-54.0); HEMOGLOBIN 12.4 g/dL (14.0-18.0); MEAN CORPUSCULAR HEMOGLOBIN 34.5 pg (27.0-34.0); MEAN CORPUSCULAR HGB CONC 34.6 g/dL (33.0-35.0); MEAN CORPUSCULAR VOLUME 99.7 fL (80-100); PLATELET COUNT,PLT 177 10^3/uL (150-450); RED BLOOD CELL COUNT 3.59 10^6/uL (4.6-6.2); WHITE BLOOD CELL COUNT,WBC 13.1 10^3/uL (5.0-10.0)
[2024-08-15 06:34] LABS: MONOCYTES PERCENT AUTO 2.8 % (2-8); NEUTROPHILS PERCENT AUTO 92.2 % (42.2-75.2)
[2024-08-15 07:08] LABS: ALBUMIN 2.2 g/dL (3.4-5.0); ANION GAP 13.1 mEq/L (7-13); BILIRUBIN TOTAL 0.3 mg/dL (0.2-1.0); BUN/CREATININE RATIO 14.4 (No establ ref range); CALCIUM 8.1 mg/dL (8.5-10.1); CREATININE 1.04 mg/dL (0.70-1.30); EST CRCL DRUG DOSING (CG) 77.68 mL/min; MAGNESIUM 1.9 mg/dL (1.8-2.4); POTASSIUM,K 3.1 mmol/L (3.5-5.1); PROTEIN TOTAL,TP 6.8 g/dL (6.4-8.2)
[2024-08-15 07:09] LABS: A/G RATIO 0.48; PERCENT FE SATURATION 40.7 % (20.0-50.0)
[2024-08-15 07:44] LABS: BAND PERCENT MAN 1 %; LYMPHOCYTES PERCENT MAN 4 % (20-50); MONOCYTES PERCENT MAN 8 % (2-8); SEG NEUTROPHILS PERCENT MAN 87 % (42-75)
[2024-08-15] MEDS: Potassium Chloride 10 MEQ Tab.ER PO SCH (10:01)
[2024-08-15] MEDS: Amoxicillin/Clavulanate K 875-125 MG Tab PO SCH (12:27)
[2024-08-18 13:47] LABS: VDRL, CSF Non Reactive (Non Reactive)
[2024-08-19 05:47] LABS: CMV BY PCR Not Detected; SOURCE Not Provided
[2024-08-20 16:47] LABS: WEST NILE AB, CSF 0.02 IV (<=0.89)
== END 2024-08-15 14:44 | DRG 177 ==
LOC: DL.ED 11:25 → DL.MS 13:47
PROVIDERS: ADMIT Internal Medicine; ATTEND Student in an Organized Health Care Education/Training Program
PROC: 009U3ZX Drainage of Spinal Canal, Percutaneous Approach, Diagnostic (ICD-10-PCS; principal; 2024-08-11)
DX: J69.0 Pneumonitis due to inhalation of food and vomit (principal); G92.8 Other toxic encephalopathy; K21.9 Gastro-esophageal reflux disease without esophagitis; E11.9 Type 2 diabetes mellitus without complications; Q90.9 Down syndrome, unspecified; G30.9 Alzheimer's disease, unspecified; Z79.890 Hormone replacement therapy; Z79.84 Long term (current) use of oral hypoglycemic drugs; F02.80 Dementia in other diseases classified elsewhere, unspecified severity, without behavioral disturbance, psychotic disturbance, mood disturbance, and anxiety; J30.9 Allergic rhinitis, unspecified; E78.00 Pure hypercholesterolemia, unspecified; E03.9 Hypothyroidism, unspecified; E86.0 Dehydration; K22.2 Esophageal obstruction; E88.09 Other disorders of plasma-protein metabolism, not elsewhere classified; D69.6 Thrombocytopenia, unspecified; D64.9 Anemia, unspecified; E11.65 Type 2 diabetes mellitus with hyperglycemia; E87.6 Hypokalemia; E83.39 Other disorders of phosphorus metabolism; Z79.899 Other long term (current) drug therapy; Z79.82 Long term (current) use of aspirin
CPT/HCPCS: 0241U; 36415; 51701; 70450; 71045; 71250; 80048; 80053; 80202; 81001; 82272; 82607; 82728; 82746; 82945; 82947; 83540; 83550; 83605; 83735; 83880; 84100; 84145; 84157; 84439; 84443; 85025; 85379; 86140; 86592; 86788; 87040; 87070; 87205; 87483; 87496; 89050; 93005; 93010; 96365; 96375; 97116; 97161; 97165; 99284; 99285; 99223; 99232; 99233; 99238; A9270-GY; J0290; J0295; J0696; J1100; J1650; J1815-GY; J2060; J2543; J3372; J3480; J7030; J7050